=== PATIENT | female | born 1970 | race Two or more races ===

== ENCOUNTER 2024-06-15 20:33 | Emergency (ER) | payer MEDICAID, SELFPAY ==
[2024-06-15 20:34] VITALS: BMI 26.4
--- NOTE | 2024-06-15 21:28 | XR_ITS ---
Examination: PA chest single view Technique: Upright PA chest single view Exam date and time: June 15, 2024 at 9:34 PM Comparison May 20, 2023 Indications: Coughing beginning one month ago. Findings: Mild accentuation basilar bronchovascular markings Normal heart size The osseous structures are intact Impression: Mild bibasilar bronchitis pattern
--- NOTE | 2024-06-15 21:28 | PD.EDRME ---
Rapid Medical Screening Exam E Arrival date/time: 06/15/24 20:33 Chief Complaint: Flu Like Symptoms Time Seen by Provider: 06/15/24 20:36 Vital signs: Vital Signs Temperature 98 F 06/15/24 21:32 Pulse Rate 90 06/15/24 21:32 Respiratory Rate 18 06/15/24 21:32 Blood Pressure 117/78 06/15/24 21:32 Pulse Oximetry (%) 99 06/15/24 21:32 Oxygen Delivery Method Room Air 06/15/24 21:32 [facility] Narrative: cough x1 month, reports body aches. Taking mucinex and nyquil without relief.
[2024-06-15 21:32] VITALS: BP 117/78; PULSE 90; RESP 18; TEMP 36.6; O2SAT 99
[2024-06-15] MEDS: KETOROLAC INJ 60 MG/2 ML VIAL 30 MG IM (21:47)
[2024-06-15 22:08] LABS: Collection Type, Urine Clean Catch
[2024-06-15 22:23] LABS: Bacteria,Urine 1+; Bilirubin,Urine 1+ (Negative); Blood,Urine 1+ (Negative); Clarity,Urine Turbid (Clear/Hazy); Color,Urine Yellow (Lt Yel-Yel); Glucose, Urine Negative (Negative); Ketones,Urine 1+ (Negative); Leukocyte Esterase,Urine Positive (Negative); Nitrite,Urine Positive (Negative); Protein,Urine 1+ (Neg - Trace); RBC,Urine 21 /hpf (0-3); Specific Gravity,Urine 1.037 (1.001-1.035); Squamous Epithelial Cell,Urine 36 /hpf (0-5); WBC,Urine 176 /hpf (0-5)
--- NOTE | 2024-06-15 22:50 | EDNOTE_ITS ---
Upper Respiratory Inf. RME/HPI General Chief Complaint: Flu Like Symptoms Stated Complaint: COUGH Time Seen by Provider: 06/15/24 20:36 Arrival date/time: 06/15/24 20:33 RME / HPI RME / HPI Narrative: 54-year-old female patient with no significant medical history except for chronic cigarette smoker, came in for evaluation regarding cough. Patient's been having cough for more than a month, severity moderate, associated with not feeling well. Patient denies any fever. Denies any dysuria. Denies any hematuria. Denies any frequency. Denies any other complaints no medication was taken prior to arrival. Related Data Previous Rx's ?Medication ?Instructions ?Recorded clindamycin HCl 300 mg capsule 300 mg PO TID #21 caps 12/27/20 ibuprofen 800 mg tablet 800 mg PO TID PRN pain #30 tabs 12/27/20 ibuprofen 800 mg tablet (IBU) 800 mg PO TID PRN pain #30 tabs 02/28/22 promethazine-DM 6.25 mg-15 mg/5 mL 5 ml PO Q6H PRN cough #473 mL 05/30/23 oral syrup albuterol sulfate 90 mcg/actuation 1 inh inhalation Q6H PRN shortness 06/15/24 breath activated powder inhaler of breath or wheezing #1 ea (ProAir RespiClick) cefuroxime axetil 500 mg tablet 500 mg PO BID #14 tabs 06/15/24 Allergies Allergy/AdvReac Type Severity Reaction Status Date / Time No Known Allergies Allergy Verified 06/15/24 20:35 Review of Systems Review of Systems Narrative Review of Systems: Review of system reviewed and within normal limits except mentioned in HPI ED Exam Narrative Physical exam: VITAL SIGNS: Reviewed. GENERAL APPEARANCE: Alert and interactive, follows commands, no acute distress, HEAD AND FACE: Non-traumatic. ENT: PERRL, pink conjunctivitis, eyelid no trauma, Mucous membrane moist. NECK: Supple, nontender, no nuchal rigidity. CHEST: No tenderness, no crepitus, no paradoxical movement, no retractions. LUNGS: Clear, well ventilated, symmetric, no rales, no wheezing, no ronchi, no stridor, good breath sounds bilaterally. HEART: Regular rate, regular rhythm, no murmur, no gallops. ABDOMEN: Soft, positive bowel sounds, nondistended, no guarding, nontender, no rebound, no masses, RECTAL: Deferred. GENITAL: Deferred. NEUROLOGICAL: Gross motor function intact sensory function intact, Appropriate for age. MUSCULOSKELETAL: low back nontender, full range of motion. EXTREMITIES: Nontender, full range of motion. SKIN: Color pink, dry, no rash, no lacerations, no abrasions, no contusions. LYMPHATICS: Deferred. Course Quality Measures none Orders Category Date Time Status CXR [XR chest 1V] Stat Exams 06/15/24 21:28 Completed UA [Urinalysis] Stat Lab 06/15/24 22:00 Completed Ketorolac Inj [Toradol Inj] Med 06/15/24 21:28 Discontinued 30 mg IM X1 ONE cefTRIAXone [Rocephin] 1,000 mg Med 06/15/24 22:46 Discontinued Lidocaine 1% 20 ml [Xylocaine 1% 20 ML] 2.1 ml IM X1 Vital Signs Vital signs: Vital Signs Temperature 98 F 06/15/24 21:32 Pulse Rate 90 06/15/24 21:32 Respiratory Rate 18 06/15/24 21:32 Blood Pressure 117/78 06/15/24 21:32 Pulse Oximetry (%) 99 06/15/24 21:32 Oxygen Delivery Method Room Air 06/15/24 21:32 Upper Respiratory Infection MDM Narrative MDM Narrative:: 54-year-old female patient with no significant medical history except for chronic cigarette smoker, came in for evaluation regarding cough. Patient's been having cough for more than a month, severity moderate, associated with not feeling well. Patient denies any fever. Denies any dysuria. Denies any hematuria. Denies any frequency. Denies any other complaints no medication was taken prior to arrival. Chest x-ray came back unremarkable. Urinalysis significant for UTI. Patient received ceftriaxone IM. Patient is stable for discharge, patient was started 99% on room air. Patient data External records reviewed:: None Clinical information provided by:: patient Social determinants that could affect healthcare access:: none Patient has the following chronic illnesses:: Chronic cigarette smoker How is presenting disease/condition affected by chronic disease/condition?: exacerbated by Evaluation data The following diagnostics were reviewed and interpreted by me:: lab results and radiology exam(s) Lab and/or radiology exams considered but not ordered:: None Interpretation Summary: Urinalysis significant for UTI. I personally reviewed and interpreted the x-ray of this patient. There is no acute abnormalities found, no infiltrates no pneumothorax no hemothorax normal chest x-ray. Review of other structures was without significant abnormal findings also. I additionally reviewed the radiologist report and agree with the interpretation. Medications / Prescriptions Medications or Prescriptions considered but not ordered:: None Medication administrations:: Medication Administration History Discontinued Medications Ceftriaxone Sodium 1,000 mg/ (Lidocaine HCl 2.1 ml) 0 mg IM X1 ONE Stop: 06/15/24 22:47 Ketorolac Tromethamine (Ketorolac Inj 60 Mg/2 Ml Vial) 30 mg IM X1 ONE Stop: 06/15/24 21:29 Last Admin: 06/15/24 21:47 Dose: 30 mg Documented By: OA Ceftriaxone IM Toradol IM Consultations Consultation(s) initiated? (list below): No Diagnosis Upper Respiratory Differential Diagnosis: upper respiratory infection and other (Pneumonia, UTI, bronchitis) Most likely diagnosis given after review of the tests above:: Cough, UTI Admission Indicated Admission indicated?: not indicated Explain why admission is indicated or not indicated:: Stable Admission Request Was there a request for admission?: No Disposition Plan Disposition Plan: Discharge Discharge Attestation Discharge Attestation: The patient was given an opportunity to ask questions and understood the discharge instructions. Discharge instructions specifically effects, indications for sooner follow up or return to the emergency department, and the expected course of current diagnosis. Patient condition: Stable Discharge Plan Plan Patient Disposition: HOME (Self Care) Disposition Comment: stable Prescriptions/Referrals Prescriptions/Med Rec: New cefuroxime axetil 500 mg tablet 500 mg PO BID Qty: 14 0RF ProAir RespiClick 90 mcg/actuation aerosol powdr breath activated 1 inh inhalation Q6H PRN (Reason: shortness of breath or wheezing) Qty: 1 0RF No Action clindamycin HCl 300 mg capsule 300 mg PO TID Qty: 21 0RF ibuprofen 800 mg tablet 800 mg PO TID PRN (Reason: pain) Qty: 30 0RF ibuprofen [IBU] 800 mg tablet 800 mg PO TID PRN (Reason: pain) Qty: 30 0RF promethazine-DM 6.25-15 mg/5 mL syrup 5 ml PO Q6H PRN (Reason: cough) Qty: 473 0RF Referrals: Phuc,Christopher R, PA-C [Primary Care Provider] - In 1 week Problem List Clinical Impression: Upper respiratory infection, UTI (urinary tract infection) Patient/Caregiver Discharge Instructions Discharge Activity: activity as tolerated Education Materials: Understanding Urinary Tract ... Additional Instructions: Thank you for the opportunity for serving you today. You are stable for discharged . You are advised to: Follow-up with your PCP in 1 to 2 days Return to ED for worsening of symptoms Increase oral fluids Take medication as prescribed Print Language: German Stand Alone Forms: Sejal Award Info., Patient Portal Info Letter PA/JUAN C Supervising Physician PA/OUTPATIENT ADMITTING CLERK Supervising Physician: MD Kelvin
--- NOTE | 2024-06-15 23:01 | PC.OT ---
called pt in er lobby and outside of er for medications and no answer at this time.
[2024-06-15] MEDS: cefTRIAXone 1,000 MG, LIDOCAINE 1% 20 ML 2.1 ML IM (23:05)
== END 2024-06-15 23:10 | disposition home or self-care (01) ==
PROVIDERS: Physician Assistant; Emergency Provider Emergency Medicine; PCP Physician Assistant
DX: J06.9 Acute upper respiratory infection, unspecified (principal); N39.0 Urinary tract infection, site not specified
CPT/HCPCS: 71045; 81001; 96372; 99283; J0696; J1885; J3490

== ENCOUNTER 2024-10-04 11:30 | Outpatient (RCR) | payer MEDICAID, SELFPAY ==
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
--- NOTE | 2024-10-04 13:10 | PT.ODAYNRPT ---
PT Outpatient Daily Note OP Daily Note Outpatient Physical Therapy Treatment Date: 10/04/24 Visit Reasons: BACK PAIN Subjective: Pt reports LBP, mentioned it is worse with prolonged sitting or when getting out of bed in the moning. Objective: Please see flow sheet for ther ex list. Assessment: Interventions completed with minimal pain. Plan: Assess response to treatment. Length of Time (minutes) of Treatment: 30 Minutes Procedure Charges Therapeutic Exercise 30 minutes: Yes
--- NOTE | 2024-10-12 08:53 | PT.ODS1RPT ---
PT OP Progress/Discharge Note Date of Service: 10/12/24 Progress Note/DC Note Progress Note/Discharge Note: DC Note Patient Information Visit Reasons: BACK PAIN Service Continue Service or Discharge: Discharge Discharge Date: 10/12/24 Status Assessment: Pt has been seen for 2 visits (eval + 1 visit). Pt last treated on 10/04/24. Pt no showed 3 appts (09/27, 10/10, and 10/12). At this time Pt will be d/c from care due to non-compliance per attendance policy. Pt did not meet set goals in therapy; thank you for your referrals.
== END 2024-10-04 23:59 | disposition home or self-care (01) ==
LOC: CPTX 11:30
PROVIDERS: PCP Physician Assistant; Referring Provider Physician Assistant; Visit Provider Physician Assistant
DX: M54.50 Low back pain, unspecified (principal); G89.29 Other chronic pain; R26.2 Difficulty in walking, not elsewhere classified; Z71.6 Tobacco abuse counseling; F17.210 Nicotine dependence, cigarettes, uncomplicated
CPT/HCPCS: 97110; 97162

== ENCOUNTER 2025-02-19 10:37 | Emergency (ER) | payer MEDICAID, SELFPAY ==
[2025-02-19 10:37] VITALS: BMI 26.6
[2025-02-19 11:07] VITALS: BP 114/71; PULSE 111; RESP 18; TEMP 37.2; O2SAT 99
--- NOTE | 2025-02-19 11:08 | XR_ITS ---
Examination: Abdomen sonogram, Limited Date and time of exam: February 19, 2025 1211 hours INDICATIONS: Epigastric pain beginning 2 days ago Technique: Real-time perez scale transabdominal sonographic images of the upper abdomen obtained. Findings: Normal gallbladder. Normal common bile duct 0.5 cm Pancreatic head 2.7 cm Liver 16.8 cm no liver lesions Normal hepatopedal portal venous flow Patent IVC IMPRESSION: Normal gallbladder Normal common bile duct Pancreatic head 2.7 cm Mild hepatomegaly no focal liver lesions
--- NOTE | 2025-02-19 11:08 | PD.EDRME ---
Rapid Medical Screening Exam RME Arrival date/time: 02/19/25 10:37 54-year-old female with a history of asthma presents to the emergency room with a chief complaint of right upper quadrant abdominal pain and tenderness x 2 days I have greeted and performed a focused initial assessment of this patient. A comprehensive ED assessment and evaluation of the patient, analysis of all test results, and completion of the medical decision making process will be conducted by additional ED providers. Chief Complaint: Abdominal Pain Vital signs: Vital Signs Temperature 98.9 F 02/19/25 11:07 Pulse Rate 111 H 02/19/25 11:07 Respiratory Rate 18 02/19/25 11:07 Blood Pressure 114/71 02/19/25 11:07 Pulse Oximetry (%) 99 02/19/25 11:07 Oxygen Delivery Method Room Air 02/19/25 11:07 Vital signs reviewed by provider: Yes
[2025-02-19 11:42] LABS: Collection Type, Urine Clean Catch
[2025-02-19 11:48] LABS: Basophils # (Auto) 0.0 Thou/mm3 (0.0-0.2); Basophils % (Auto) 0 % (0-2.5); Eosinophils # (Auto) 0.0 Thou/mm3 (0.0-0.5); Eosinophils % (Auto) 0 % (0-10); Hematocrit 40.5 % (36.0-46.0); Hemoglobin 13.6 g/dL (12.0-16.0); Immature Granulocytes Auto 0.04 Thou/mm3 (0.00-0.00); Lymphocytes # (Auto) 1.3 Thou/mm3 (1.0-4.8); Lymphocytes % (Auto) 12 % (10-50); Mean Corpuscular HGB Conc 33.6 g/dl (31.0-37.0); Mean Corpuscular Hemoglobin 30.3 pg (25.0-35.0); Mean Corpuscular Volume 90 fL (80-100); Monocytes # (Auto) 0.6 Thou/mm3 (0.0-0.8); Monocytes % (Auto) 5 % (0-12); Neutrophils # (Auto) 8.8 Thou/mm3 (1.8-7.7); Neutrophils % (Auto) 82 % (37-80); Nucleated Red Blood Cell # 0.00 Thou/mm3 (0.00-0.00); Nucleated Red Blood Cell % 0 /100 WBC (0); Platelet Count 243 Thou/mm3 (140-440); RDW Standard Deviation 43.2 fL (36.4-46.3); Red Blood Count 4.49 Miln/mm3 (4.00-5.20); White Blood Count 10.8 Thou/mm3 (3.6-11.0)
[2025-02-19] MEDS: HYDROcodone/APAP 5/325 TABLET 1 TAB PO ×2 (11:52→13:35)
[2025-02-19 12:04] LABS: Bilirubin,Urine Negative (Negative); Blood,Urine 2+ (Negative); Clarity,Urine Turbid (Clear/Hazy); Color,Urine Yellow (Lt Yel-Yel); Glucose, Urine Negative (Negative); Ketones,Urine 3+ (Negative); Leukocyte Esterase,Urine Positive (Negative); Nitrite,Urine Positive (Negative); PH,Urine 6.0 (5.0-7.0); Protein,Urine 1+ (Neg - Trace); RBC,Urine 18 /hpf (0-3); Specific Gravity,Urine 1.015 (1.001-1.035); Squamous Epithelial Cell,Urine 5 /hpf (0-5); Urobilinogen,Urine Negative mg/dL (0.0-1.0); WBC,Urine 801 /hpf (0-5)
[2025-02-19 12:06] LABS: Alanine Aminotransferase 14 U/L (10-49); Albumin, Serum 4.5 gm/dL (3.5-5.0); Albumin/Globulin Ratio 1.7 (1.2-2.2); Alkaline Phosphatase 129 U/L (46-116); Anion Gap 11 (7-16); Aspartate Amino Transferase 12 U/L (0-34); BUN/Creatinine Ratio 10 Ratio (12-20); Bilirubin,Total 1.7 mg/dL (0.3-1.2); Blood Urea Nitrogen 9 mg/dL (9-23); Calcium 9.7 mg/dL (8.3-10.6); Calcium (Corrected) 9.7 mg/dL (8.5-10.1); Carbon Dioxide 23.6 mMol/L (20.0-31.0); Chloride 98 mMol/L (98-107); Creatinine (Component) 0.9 mg/dL (0.6-1.3); Estimated Creatinine Clearance 80.0 mL/min (>60); Globulin 2.6 gm/dL (2.3-3.5); Glucose 98 mg/dL (74-106); Osmolality,Calculated 265 (275-295); Potassium 4.0 mMol/L (3.4-5.1); Sodium 133 mMol/L (136-145); Total Protein 7.1 gm/dL (5.7-8.2); eGFR > 60 See Note
[2025-02-19 12:12] LABS: HCG Qualitative,Urine Negative
--- NOTE | 2025-02-19 13:15 | PD.EDABDPN ---
ED Abdominal Pain RME/HPI General Chief Complaint: Abdominal Pain Stated complaint: RIGHT SIDE ABD PAIN TODAY Arrival date/time: 02/19/25 10:37 RME / HPI RME / HPI narrative: 02/19/25 10:37 54-year-old female with a history of asthma presents to the emergency room with a chief complaint of right upper quadrant abdominal pain and tenderness x 2 days I have greeted and performed a focused initial assessment of this patient. A comprehensive ED assessment and evaluation of the patient, analysis of all test results, and completion of the medical decision making process will be conducted by additional ED providers. DR. COYNE MAIN ED EVALUATION 54 year old female with history of asthma presents to the ED with complaint of right upper abdominal pain beginning 2 days ago. Described as aching in sensation, rating 8/10 in severity. Denies taking any medications at home. Denies fevers, chills, chest pain, cough, shortness of breath, nausea, vomiting, diarrhea, constipation or urinary symptoms. No other associated symptoms reported. Related Data Previous Rx's ?Medication ?Instructions ?Recorded clindamycin HCl 300 mg capsule 300 mg PO TID #21 caps 12/27/20 ibuprofen 800 mg tablet 800 mg PO TID PRN pain #30 tabs 12/27/20 ibuprofen 800 mg tablet (IBU) 800 mg PO TID PRN pain #30 tabs 02/28/22 promethazine-DM 6.25 mg-15 mg/5 mL 5 ml PO Q6H PRN cough #473 mL 05/30/23 oral syrup albuterol sulfate 90 mcg/actuation 1 inh inhalation Q6H PRN shortness 06/15/24 breath activated powder inhaler of breath or wheezing #1 ea (ProAir RespiClick) cefuroxime axetil 500 mg tablet 500 mg PO BID #14 tabs 06/15/24 sulfamethoxazole 800 1 tab PO BID #14 tabs 02/19/25 mg-trimethoprim 160 mg tablet (Bactrim DS) Allergies Allergy/AdvReac Type Severity Reaction Status Date / Time No Known Allergies Allergy Verified 02/19/25 10:39 Review of Systems Review of Systems Systems Reviewed: All systems reviewed, normal except as documented Past Medical History Past Medical History CARDIAC: Negative Cardiac Disorders or Congestive Heart Failure RESPIRATORY: Positive Asthma; Negative Chronic Obstructive Pulmonary Disease (COPD) GENITOURINARY: Negative Renal Disease ENDOCRINE: Negative Diabetes Mellitus Type 1 or Diabetes Mellitus Type 2 HEMATOLOGIC: Negative Sickle Cell Disease Surgical History SURGICAL: Positive Open Reduction Internal Fixation and Tubal Ligation Social History SMOKING STATUS: Current every day smoker ED Exam Narrative Physical exam: GENERAL APPEARANCE: alert and oriented x 4, well-developed, well-nourished, no acute distress HEENT: Normocephalic, atraumatic; pupils equal, round, reactive to light; EOMI; mucous membranes pink, moist; oropharynx clear NECK: Supple LUNGS: CTABL; no wheezes, no rales, no rhonchi HEART: Regular rate, regular rhythm; normal S1, S2; no murmurs ABDOMEN: non distended; normal BS; soft, no tenderness, no guarding, no rebound; no masses, no organomegaly, no hernia BACK: no CVA tenderness EXTREMITIES: atraumatic; no edema NEUROLOGIC: awake; alert and oriented x4; cranial nerves II-XII grossly intact; no focal sensory or motor deficits PSYCHIATRIC: appropriate mood and affect SKIN: warm, dry, normal color; no rashes Course Quality Measures none Orders Category Date Time Status US gall bladder Stat Exams 02/19/25 11:08 Completed CBC Stat Lab 02/19/25 11:35 Completed CMP [Comprehensive Metabolic Panel] Stat Lab 02/19/25 11:35 Completed HCG Qualitative,Urine Stat Lab 02/19/25 11:34 Completed UA [Urinalysis] Stat Lab 02/19/25 11:34 Completed Urine Culture Stat Lab 02/19/25 11:34 Received HYDROcodone*/APAP 5/325 [[place] 5/325] Med 02/19/25 11:08 Discontinued 1 tab PO X1 ONE HYDROcodone*/APAP 5/325 [[place] 5/325] Med 02/19/25 13:15 Discontinued 1 tab PO X1 ONE Ketorolac Inj [Toradol Inj] Med 02/19/25 13:15 Discontinued 30 mg IM X1 ONE Trimethoprim/Sulfa 160/800 Ds [Bactrim Ds] Med 02/19/25 13:15 Discontinued 1 tab PO X1 ONE Vital Signs Vital signs: Vital Signs Temperature 98.9 F 02/19/25 11:07 Pulse Rate 111 H 02/19/25 11:07 Respiratory Rate 18 02/19/25 11:07 Blood Pressure 114/71 02/19/25 11:07 Pulse Oximetry (%) 99 02/19/25 11:07 Oxygen Delivery Method Room Air 02/19/25 11:07 Pulse ox is 99% on room air which is adequate. Abdominal Pain MDM MDM Narrative MDM Narrative:: Ashly Colindres am scribing for and in the presence of Dr. Coyne. Patient data External records reviewed:: [facility] previous records (I reviewed ED visit on 06/15/2024 ) Clinical information provided by:: patient Social determinants that could affect healthcare access:: none Patient has the following chronic illnesses:: Asthma How is presenting disease/condition affected by chronic disease/condition?: no chronic disease Evaluation data The following diagnostics were reviewed and interpreted by me:: lab results and radiology exam(s) Lab and/or radiology exams considered but not ordered:: None Interpretation Summary: Ordering Physician: Bryson De La Garza Date of Service: 02/19/25 Procedure(s): US gall bladder Accession Number(s): [id number] cc: Bryson De La Garza; Alonzo Hoskins MD; Vasile Lei MD~ Examination: Abdomen sonogram, Limited Date and time of exam: February 19, 2025 1211 hours INDICATIONS: Epigastric pain beginning 2 days ago Technique: Real-time perez scale transabdominal sonographic images of the upper abdomen obtained. Findings: Normal gallbladder. Normal common bile duct 0.5 cm Pancreatic head 2.7 cm Liver 16.8 cm no liver lesions Normal hepatopedal portal venous flow Patent IVC IMPRESSION: Normal gallbladder Normal common bile duct Pancreatic head 2.7 cm Mild hepatomegaly no focal liver lesions Dictated By: Vasile Lei MD Signed By: <Electronically signed by Vasile Lei MD in OV> 02/19/25 1239 Medications / Prescriptions Medications or Prescriptions considered but not ordered:: None Medication administrations:: Medication Administration History Discontinued Medications Hydrocodone Bitart/Acetaminophen (Hydrocodone/[place] 5/325 Tablet) 1 tab PO X1 ONE Stop: 02/19/25 11:09 Last Admin: 02/19/25 11:52 Dose: 1 tab Documented By: Hydrocodone Bitart/Acetaminophen (Hydrocodone/Apap 5/325 Tablet) 1 tab PO X1 ONE Stop: 02/19/25 13:16 Ketorolac Tromethamine (Ketorolac Inj 30 Mg/Ml Vial) 30 mg IM X1 ONE Stop: 02/19/25 13:16 Trimethoprim/Sulfamethoxazole (Trimethoprim/Sulfa 160/800 Ds Tablet) 1 tab PO X1 ONE Stop: 02/19/25 13:16 See above Consultations Consultation(s) initiated? (list below): No Diagnosis Differential diagnosis abdominal pain: abdominal pain, calculus of kidney, constipation, gastroenteritis and other (cholelithiasis) Most likely diagnosis given after review of the tests above:: Abdominal pain UTI Admission Indicated Admission indicated?: not indicated Admission Request Was there a request for admission?: No Disposition Plan Disposition Plan: Discharge Discharge Attestation Discharge Attestation: The patient and all family members were given an opportunity to ask questions and understood the discharge instructions. Discharge instructions specifically effects, indications for sooner follow up or return to the emergency department, and the expected course of current diagnosis. Patient condition: Stable Discharge Plan Plan Patient Disposition: HOME (Self Care) Prescriptions/Referrals Prescriptions/Med Rec: New sulfamethoxazole-trimethoprim [Bactrim DS] 800-160 mg tablet 1 tab PO BID Qty: 14 0RF No Action clindamycin HCl 300 mg capsule 300 mg PO TID Qty: 21 0RF ibuprofen 800 mg tablet 800 mg PO TID PRN (Reason: pain) Qty: 30 0RF cefuroxime axetil 500 mg tablet 500 mg PO BID Qty: 14 0RF ProAir RespiClick 90 mcg/actuation aerosol powdr breath activated 1 inh inhalation Q6H PRN (Reason: shortness of breath or wheezing) Qty: 1 0RF ibuprofen [IBU] 800 mg tablet 800 mg PO TID PRN (Reason: pain) Qty: 30 0RF promethazine-DM 6.25-15 mg/5 mL syrup 5 ml PO Q6H PRN (Reason: cough) Qty: 473 0RF Referrals: Alonzo Hoskins MD [Primary Care Provider, Family Practice] - In 1 week Problem List Clinical Impression: Abdominal pain, UTI (urinary tract infection) Patient/Caregiver Discharge Instructions Education Materials: ED CYSTITIS Female Adult Print Language: [place] Citizen Stand Alone Forms: Sejal Award Info., Patient Portal Info Letter
[2025-02-19] MEDS: TRIMETHOPRIM/SULFA 160/800 DS TABLET 1 TAB PO (13:35)
[2025-02-19] MEDS: KETOROLAC INJ 30 MG/ML VIAL IM (13:37)
== END 2025-02-19 15:00 | disposition home or self-care (01) ==
PROVIDERS: Nurse Practitioner Family; Emergency Provider Emergency Medicine; PCP Family Medicine
DX: N39.0 Urinary tract infection, site not specified (principal); R10.11 Right upper quadrant pain; R16.0 Hepatomegaly, not elsewhere classified
CPT/HCPCS: 36415; 76705; 80053; 81001; 81025; 85025; 87077; 87086; 87186; 96372; 99283; J1885; A9270

== ENCOUNTER 2025-02-21 21:26 | Emergency (ER) | payer MEDICAID, SELFPAY ==
[2025-02-21 21:27] VITALS: BP 138/74; PULSE 100; RESP 18; TEMP 36.7; O2SAT 96; BMI 25.8
--- NOTE | 2025-02-21 22:07 | XR_ITS ---
Examination: CT abdomen and pelvis without contrast. Coronal 3-D reconstructions. Sagittal 2-D reconstructions. Date and time of exam:February 21, 2025 1012 hrs. Indications: Abdominal pain and distention 4 days, urinary tract infection diagnosis 2 days ago CTDI: vol (mGy): 8.58 DLP: (mGycm): 461 Technique: Axial images of the abdomen have been obtained, 3 mm slice thickness Intravenous contrast material has not been administered. Low dose protocols were performed. One or more of the following dose reduction techniques were used; automated exposure control, adjustment of the mA and/or KV according to patient size, use of iterative reconstruction technique. Findings: Small benign liver cysts No biliary tract dilatation Contracted gallbladder No pancreatic or adrenal mass Mild renal scarring Aorta normal size Abundant stool throughout the colon Normal appendix Mild fluid distended small bowel loops No pelvic mass Urinary bladder wall thickening, mild Advanced disc narrowing L4-L5 Impression: Normal appendix Mild fluid distended small bowel loops, consider ileus enteritis, early small bowel obstruction not excluded, suggest 3 way plain film abdominal series follow-up Cystitis pattern
--- NOTE | 2025-02-21 22:12 | EDNOTE_ITS ---
ED Abdominal Pain RME/HPI General Chief Complaint: General Adult/Misc Complain Stated complaint: CONSTIPATION X4DAYS Time seen by provider: 02/21/25 22:06 Arrival date/time: 02/21/25 21:26 54F with history of meth use presents to ED with 4 days of ab pain and constipation. Patient denies N/V. Patient was here 2 days ago for this and diagnosed with a UTI. UC results show E-coli sensitive to Bactrim, which patient is taking. Patient has tried lactulose and an enema w/o relief. Limitations: no limitations Related Data Previous Rx's ?Medication ?Instructions ?Recorded clindamycin HCl 300 mg capsule 300 mg PO TID #21 caps 12/27/20 ibuprofen 800 mg tablet 800 mg PO TID PRN pain #30 t abs 12/27/20 ibuprofen 800 mg tablet (IBU) 800 mg PO TID PRN pain # 30 tabs 02/28/22 promethazine-DM 6.25 mg-15 mg/5 mL 5 ml PO Q6H PRN cou gh #473 mL 05/30/23 oral syrup albuterol sulfate 90 mcg/actuation 1 inh inhalation Q6 H PRN shortness 06/15/24 breath activated powder inhaler of breath or wheezing #1 ea (ProAir RespiClick) cefuroxime axetil 500 mg tablet 500 mg PO BID #14 tabs 06/15/24 sulfamethoxazole 800 1 tab PO BID #14 tabs mg-trimethoprim 160 mg tablet (Bactrim DS) Allergies Allergy/AdvReac Type Severity Reaction Status Date / Time No Known Allergies Allergy Verified 02/19/25 10:39 Review of Systems Review of Systems Systems Reviewed: All systems reviewed, normal except as documented Gastrointestinal Gastrointestinal: Reports as per HPI, Reports abdominal pain and Reports constipation Past Medical History Past Medical History CARDIAC: Negative Cardiac Disorders or Congestive Heart Failure RESPIRATORY: Positive Asthma; Negative Chronic Obstructive Pulmonary Disease (COPD) GENITOURINARY: Negative Renal Disease ENDOCRINE: Negative Diabetes Mellitus Type 1 or Diabetes Mellitus Type 2 HEMATOLOGIC: Negative Sickle Cell Disease Surgical History SURGICAL: Positive Open Reduction Internal Fixation and Tubal Ligation Social History SMOKING STATUS: Current some day smoker ED Exam General Limitations: Present no limitations General appearance: Present alert and in no apparent distress Head Head exam: Present atraumatic Neck Neck exam: Present normal inspection, full ROM and trachea midline Chest Chest inspection: Present normal inspection and symmetric chest wall rise Abdominal Exam Abdominal exam: Present soft and tenderness Abdominal tenderness: Present mild Extremities Exam Extremities exam: Present normal inspection and full ROM Back Exam Back exam: Present normal inspection and full ROM Neurological Exam Neurological exam: Present alert and oriented X3 Psychiatric Psychiatric exam: Present normal affect and normal mood Skin Skin exam: Present warm, dry, intact and normal color Course Quality Measures none Orders Category Date Time Status CT abdomen pelvis wo con Stat Exams 02/21/25 22:07 Completed Ketorolac Inj [Toradol Inj] Med 02/21/25 23:40 Discontinued 60 mg IM X1 ONE Magnesium Citrate Liqd [Citrate of Magnesia Liqd] Med 02/21/25 23:40 Discontinued 300 ml PO X1 ONE Senna [Senokot] Med 02/21/25 23:40 Discontinued 2 tab PO X1 ONE Vital Signs Vital signs: Vital Signs Temperature 98.1 F 02/21/25 21:27 Pulse Rate 100 02/21/25 21:27 Respiratory Rate 18 02/21/25 21:27 Blood Pressure 138/74 H 02/21/25 21:27 Pulse Oximetry (%) 96 02/21/25 21:27 Oxygen Delivery Method Room Air 02/21/25 21:27 O2 at 96% on RA and WNLs Abdominal Pain MDM MDM Narrative MDM Narrative:: 54F with history of meth use presents to ED with 4 days of ab pain and constipation. Patient denies N/V. Patient was here 2 days ago for this and diagnosed with a UTI. UC results show E-coli sensitive to Bactrim, which patient is taking. Patient has tried lactulose and an enema w/o relief. Physical exam reveals mild ab tenderness. Patient is afebrile, alert, but appears uncomfortable. CT abundant stool. Patient had BM after some laxatives. Patient data External records reviewed:: [facility] previous records Clinical information provided by:: patient Social determinants that could affect healthcare access:: substance use Patient has the following chronic illnesses:: meth use How is presenting disease/condition affected by chronic disease/condition?: exacerbated by Evaluation data The following diagnostics were reviewed and interpreted by me:: radiology exam(s) Lab and/or radiology exams considered but not ordered:: ordered Interpretation Summary: above Medications / Prescriptions Medications or Prescriptions considered but not ordered:: ordered Medication administrations:: Medication Administration History Discontinued Medications Ketorolac Tromethamine (Ketorolac Inj 60 Mg/2 Ml Vial) 60 mg IM X1 ONE Stop: 02/21/25 23:41 Last Admin: 02/21/25 23:51 Dose: 60 mg Documented By: LIZ Magnesium Citrate (Magnesium Citrate 300 Ml Btl) 300 ml PO X1 ONE Stop: 02/21/25 23:41 Last Admin: 02/21/25 23:52 Dose: 300 ml Documented By: LIZ Sennosides (Senna Tablet) 2 tab PO X1 ONE; Protocol Stop: 02/21/25 23:41 Last Admin: 02/21/25 23:52 Dose: 2 tab Documented By: LIZ above Consultations Consultation(s) initiated? (list below): No Diagnosis Differential diagnosis abdominal pain: abdominal pain, acute appendicitis, calculus of kidney, constipation, diverticulitis, endometriosis, gastroenteritis, pancreatitis and small bowel obstruction Most likely diagnosis given after review of the tests above:: constipation Admission Indicated Admission indicated?: not indicated Admission Request Was there a request for admission?: No Disposition Plan Disposition Plan: Discharge Discharge Attestation Discharge Attestation: The patient and all family members were given an opportunity to ask questions and understood the discharge instructions. Discharge instructions specifically effects, indications for sooner follow up or return to the emergency department, and the expected course of current diagnosis. Patient condition: Stable Discharge Plan Plan Patient Disposition: HOME (Self Care) Discharge Disposition comment: Stable Prescriptions/Referrals Prescriptions/Med Rec: No Action clindamycin HCl 300 mg capsule 300 mg PO TID Qty: 21 0RF ibuprofen 800 mg tablet 800 mg PO TID PRN (Reason: pain) Qty: 30 0RF cefuroxime axetil 500 mg tablet 500 mg PO BID Qty: 14 0RF ProAir RespiClick 90 mcg/actuation aerosol powdr breath activated 1 inh inhalation Q6H PRN (Reason: shortness of breath or wheezing) Qty: 1 0RF ibuprofen [IBU] 800 mg tablet 800 mg PO TID PRN (Reason: pain) Qty: 30 0RF promethazine-DM 6.25-15 mg/5 mL syrup 5 ml PO Q6H PRN (Reason: cough) Qty: 473 0RF sulfamethoxazole-trimethoprim [Bactrim DS] 800-160 mg tablet 1 tab PO BID Qty: 14 0RF Referrals: Alonzo Hoskins MD [Primary Care Provider, Family Practice] - In 1 week Problem List Clinical Impression: Constipation Patient/Caregiver Discharge Instructions Education Materials: ED Constipation (Adult) Additional Instructions: Please follow-up with PCP within 24-48 hours and return immediately if symptoms worsen. Print Language: [place] Stand Alone Forms: Patient Portal Info Letter PA/FASHION ILLUSTRATOR Supervising Physician PA/FASHION ILLUSTRATOR Supervising Physician: Dr. Mane
[2025-02-21] MEDS: KETOROLAC INJ 60 MG/2 ML VIAL IM (23:51)
[2025-02-21] MEDS: MAGNESIUM CITRATE 300 ML BTL PO (23:52)
[2025-02-22 04:32] VITALS: BP 145/96; PULSE 85; RESP 15; TEMP 37; O2SAT 99
== END 2025-02-22 04:33 | disposition home or self-care (01) ==
PROVIDERS: Emergency Provider Emergency Medicine; PCP Family Medicine
DX: K59.00 Constipation, unspecified (principal)
CPT/HCPCS: 74176; 96372; 99283; J1885; A9270

== ENCOUNTER → 2025-02-21 | Outpatient (CLI) | payer MEDICAID, SELFPAY ==
--- NOTE | 2025-02-21 16:30 | XR_ITS ---
Examination: CT chest, without intravenous contrast. Sagittal and coronal 2-D reconstructions. Exam date and time: February 21, 2025 1621 hrs. Indications: Smoking history 30 years, shortness of breath 2 years CTDI:vol (mGy) 8.50 DLP: (mGycm) 313 Technique: Multiple 3.0 mm axial sections of the chest to been obtained. Bone and lung density settings are obtained. Sagittal and coronal 2-D reconstructions have been obtained. Low dose protocols were performed. One or more of the following dose reduction techniques were used; automated exposure control, adjustment of the mA and/or KV according to patient size, use of iterative reconstruction technique. Findings: AP dimension ascending thoracic aorta 3.6 cm Pulmonary artery segments are not enlarged. No paratracheal tracheobronchial or bronchopulmonary adenopathy Small calcified left lung granulomas No pneumonia, pulmonary edema, pleural disease or noncalcified pulmonary nodules 9 mm liver cyst No biliary tract dilatation No pancreatic mass Kidneys partially visualized no hydronephrosis Impression: No mediastinal lymphadenopathy No pneumonia, pulmonary edema, pleural disease or noncalcified pulmonary nodules
== END | disposition home or self-care (01) ==
PROVIDERS: PCP Physician Assistant; Referring Provider Physician Assistant; Visit Provider Physician Assistant
DX: Z12.2 Encounter for screening for malignant neoplasm of respiratory organs (principal)
CPT/HCPCS: 71271

== ENCOUNTER → 2025-03-05 | Outpatient (CLI) | payer MEDICAID, SELFPAY ==
--- NOTE | 2025-03-05 10:25 | XR_ITS ---
Examination: Diagnostic digital mammography, bilateral Computer aided detection 3-D breast Tomosynthesis, bilateral Date and time of exam: March 05, 2025, 1015 hours INDICATIONS: 8mm nodule upper outer right breast on mammogram of November 26, 2022 Technique: Nonmagnified MLO, CC views of the breasts to been obtained, reconstructed from 3-D Tomosynthesis images. R2 computer aided detection program utilized for evaluation of suspicious masses and/or abnormal calcifications. 3-D Tomosynthesis images obtained. Findings: The breasts are heterogeneously dense, which may obscure small masses 10 mm nodule upper outer right breast mid depth Benign calcifications Impression: BI-RADS Category 0: Incomplete: Need additional imaging evaluation Recommend follow-up spot tomographic views of 10 mm nodule upper outer right breast, partially indistinct margins as well as right breast sonography to complete the workup.
--- NOTE | 2025-03-05 11:00 | XR_ITS ---
Examination: Breast ultrasound, unilateral, right complete Date and time of exam: March 05, 2025 1023 hours INDICATIONS: 12:00 nodule right breast 8 x 5 mm on sonogram November 26, 2022 Technique: Real-time perez scale ultrasonographic imaging performed right breast including all 4 quadrants as well as nipple retroareolar and axillary region. Findings: 12:00 nodule circumscribed lobular margins 6 x 5 mm IMPRESSION: BI-RADS Category 3: Probably benign findings Recommend 1 additional 6 month right breast sonogram follow-up to document stability of solid nodule described above
== END | disposition home or self-care (01) ==
PROVIDERS: Referring Provider Physician Assistant; Visit Provider Physician Assistant
DX: R92.333 Mammographic heterogeneous density, bilateral breasts (principal); N63.11 Unspecified lump in the right breast, upper outer quadrant
CPT/HCPCS: 76641; 77062; 77066; G0279